=== PATIENT | male | born 1980 | race Caucasian/White ===

== ENCOUNTER 2017-10-10 15:22 | Emergency (ER) | payer SELFPAY ==
[~2017-10-10] VITALS: Ht 185.4 cm; Wt 83.9 kg
[~2017-10-10 15:22] MED LIST: Bactrim Ds Tab1 EACH PO; CEPH500 PO; Keflex500 MG PO; NAPR500 PO
[2017-10-10] MEDS ORDERED: Keflex500 MG PO (15:33)
[2017-10-10] MEDS ORDERED: Bactrim Ds Tab1 EACH PO (15:33)
== END 2017-10-10 15:39 | disposition home or self-care (01) ==
LOC: ER 15:22
DX: L02.416 Cutaneous abscess of left lower limb (principal); L02.31 Cutaneous abscess of buttock; F17.200 Nicotine dependence, unspecified, uncomplicated; Z86.14 Personal history of Methicillin resistant Staphylococcus aureus infection
CPT/HCPCS: 99283